=== PATIENT | male | born 1955 | race Caucasian/White ===

== ENCOUNTER 2024-04-11 07:37 | Day surgery (SDC) | payer MEDICARE, BC ==
[2024-04-11] MEDS: Lactated Ringers 1,000 ML IV SCH (07:56)
[2024-04-11] MEDS ORDERED: fentaNYL 100 MCG/2 ML SDV ONE (09:11)
[2024-04-11] MEDS ORDERED: Midazolam 1 MG/ML 2 ML SDV ONE (09:11)
[2024-04-11] MEDS ORDERED: Propofol 200 MG/20 ML SDV ONE (09:11)
== END 2024-04-11 10:43 | disposition home or self-care (01) ==
LOC: VM.SDS 07:37
PROVIDERS: ATTEND Family Medicine
DX: Z12.11 Encounter for screening for malignant neoplasm of colon (principal); K57.30 Diverticulosis of large intestine without perforation or abscess without bleeding; E11.22 Type 2 diabetes mellitus with diabetic chronic kidney disease; I12.9 Hypertensive chronic kidney disease with stage 1 through stage 4 chronic kidney disease, or unspecified chronic kidney disease; N18.31 Chronic kidney disease, stage 3a; E11.42 Type 2 diabetes mellitus with diabetic polyneuropathy; E78.00 Pure hypercholesterolemia, unspecified; K21.9 Gastro-esophageal reflux disease without esophagitis; E66.01 Morbid (severe) obesity due to excess calories; Z68.38 Body mass index [BMI] 38.0-38.9, adult; Z87.891 Personal history of nicotine dependence; Z79.84 Long term (current) use of oral hypoglycemic drugs; Z79.4 Long term (current) use of insulin; Z79.899 Other long term (current) drug therapy; Z88.0 Allergy status to penicillin; Z88.6 Allergy status to analgesic agent; Z91.010 Allergy to peanuts
CPT/HCPCS: 82947; J2250; J2704; J3010; J7120